=== PATIENT | male | born 1990 ===

== ENCOUNTER 2016-12-10 07:33 | Observation (INO) | payer SELFPAY ==
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
[2016-12-10 10:46] VITALS: BP 120/72; PULSE 98; RESP 17; TEMP 98
[2016-12-10 10:59] VITALS: O2SAT 96
== END 2016-12-10 10:52 | disposition home or self-care (01) ==
LOC: C.ER 07:33 → C.9OBSV 10:13
PROVIDERS: ADMIT Emergency Medicine; ATTEND Emergency Medicine
DX: F10.229 Alcohol dependence with intoxication, unspecified (principal)
CPT/HCPCS: 82948; 94770; 99283; G0378